=== PATIENT | male | born 1980 | race Caucasian/White ===

== ENCOUNTER 2025-05-22 06:39 | Emergency (ER) | payer OTHER, SELFPAY ==
--- NOTE | ~2025-05-22 | XR_ITS ---
EXAMINATION: XR SHOULDER 2 OR MORE VIEWS RIGHT, XR CLAVICLE RIGHT HISTORY: Pain COMPARISON: There are no prior studies available for comparison. FINDINGS: Three views of the right shoulder and 2 additional views of the right clavicle are submitted. Osseous mineralization is normal. There is no fracture or dislocation. The glenohumeral joint is maintained. There is moderate osteoarthritis of the AC joint with joint space narrowing and osteophyte formation. The soft tissues are unremarkable. XR/XR shoulder RT min 2V IMPRESSION: Moderate osteoarthritis of the AC joint. Electronically signed by: Valdemar Thacker MD 05/22/2025 08:03 AM [facility]
--- NOTE | ~2025-05-22 | XR_ITS ---
EXAMINATION: XR SHOULDER 2 OR MORE VIEWS RIGHT, XR CLAVICLE RIGHT HISTORY: Pain COMPARISON: There are no prior studies available for comparison. FINDINGS: Three views of the right shoulder and 2 additional views of the right clavicle are submitted. Osseous mineralization is normal. There is no fracture or dislocation. The glenohumeral joint is maintained. There is moderate osteoarthritis of the AC joint with joint space narrowing and osteophyte formation. The soft tissues are unremarkable. XR/XR clavicle RT IMPRESSION: Moderate osteoarthritis of the AC joint. Electronically signed by: Valdemar Thacker MD 05/22/2025 08:03 AM [facility]
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
[2025-05-22 06:42] VITALS: BP 106/70; PULSE 60; RESP 20; TEMP 36.3; O2SAT 98; BMI 21.5
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
[2025-05-22 09:10] VITALS: BP 106/70; PULSE 60; RESP 20; TEMP 36.3; O2SAT 98
== END 2025-05-22 09:10 | disposition home or self-care (01) ==
PROVIDERS: Emergency Provider Emergency Medicine
DX: S13.4XXA Sprain of ligaments of cervical spine, initial encounter (principal); V43.62XA Car passenger injured in collision with other type car in traffic accident, initial encounter; Y93.9 Activity, unspecified; Y92.9 Unspecified place or not applicable; Y99.9 Unspecified external cause status; M19.011 Primary osteoarthritis, right shoulder; M25.511 Pain in right shoulder
CPT/HCPCS: 72125; 73000; 73030; 99284

== ENCOUNTER → 2025-05-22 06:51 | Outpatient (BNV) | payer OTHER, SELFPAY | PROVIDERS: Emergency Provider Emergency Medicine; Visit Provider Radiology Diagnostic Radiology | DX: M54.2 Cervicalgia (principal); M47.812 Spondylosis without myelopathy or radiculopathy, cervical region; M19.011 Primary osteoarthritis, right shoulder | CPT/HCPCS: 72125; 73000; 73030 ==